=== PATIENT | male | born 1990 | race Two or more races ===

== ENCOUNTER 2025-05-05 16:10 | Emergency (ER) | payer OTHER ==
[~2025-05-05] VITALS: Ht 182.9 cm; Wt 91.2 kg
[2025-05-05] MEDS ORDERED: ORPHENADRINE CITRATE 30 MG/ML AMPUL IM STA (16:51)
[2025-05-05] MEDS ORDERED: KETOROLAC TROMETHAMINE 30 MG VIAL IM STA (16:51)
[2025-05-05] MEDS ORDERED: DEXAMETHASONE SODIUM PHOSPHATE 4 MG/ML VIAL IM STA (16:52)
[2025-05-05] MEDS ORDERED: DICLOFENAC SODI75 MG PO (17:57)
[2025-05-05] MEDS ORDERED: BACLOFEN10 MG PO (17:57)
== END 2025-05-05 18:02 | disposition home or self-care (01) ==
LOC: ER 16:10
DX: M54.50 Low back pain, unspecified (principal)

== ENCOUNTER 2025-06-08 13:13 | Emergency (ER) | payer OTHER ==
[~2025-06-08] VITALS: Ht 182.9 cm; Wt 93.0 kg
[~2025-06-08 13:13] MED LIST: BACLOFEN10 MG PO; DICLOFENAC SODI75 MG PO
== END 2025-06-08 20:34 | disposition home or self-care (01) ==
LOC: ER 13:13
DX: K59.00 Constipation, unspecified (principal)

== ENCOUNTER 2025-07-21 06:55 | Emergency (ER) | payer OTHER ==
[~2025-07-21] VITALS: Ht 182.9 cm; Wt 91.2 kg
[2025-07-21 09:38] LABS: BASO % 0.7 % (0.1-1.2); EOS # 0.17 (0.04-0.54); EOS % 3.0 % (0.7-7.0); LYMPH # 0.94 (1.18-3.74); LYMPH % 16.8 % (19.3-53.1); MEAN PLATELET VOLUME 9.70 fl (9.4-12.4); MONO # 0.75 (0.24-0.82); NEUT # 3.68 (1.56-6.13); NEUT % 65.9 % (34.0-71.1); RED CELL DISTRIBUTION WIDTH 12.0 % (11.6-14.4)
[2025-07-21 09:42] LABS: COVID-19 AG POSITIVE (NEGATIVE)
[2025-07-21 09:43] LABS: MONO % 13.4 % (4.7-12.5)
== END 2025-07-21 10:26 ==
LOC: ER 06:55
PROVIDERS: General Practice
DX: U07.1 COVID-19 (principal)